=== PATIENT | male | born 1995 | race Asian ===

== ENCOUNTER 2019-03-16 23:03 | Emergency (ER) | payer SELFPAY ==
[~2019-03-16] VITALS: Ht 167.6 cm; Wt 63.0 kg
[2019-03-17 01:27] LABS: CHLORIDE 105 mEq/L (98-107); HEMATOCRIT. 46.2 % (42.0-52.0); HEMOGLOBIN. 15.7 g/dL (14.0-18.0); MEAN CORPUSCULAR VOLUME 88.3 fL (80.0-94.0); MEAN PLATELET VOLUME 8.9 fl (7.4-10.4); PLATELET 195 x1000/uL (130-400); RED BLOOD CELL COUNT 5.24 mill/uL (4.7-6.1); RED CELL DISTRIBUTION WIDTH 12.9 % (11.6-14.6)
[2019-03-17 01:31] LABS: ETHANOL BLOOD < 10 mg/dL
[2019-03-17 01:57] LABS: PLATELET ESTIMATE NORMAL
[2019-03-17] MEDS ORDERED: DIPHENHYDRAMINE 25MG CAPSULE PO ONE (02:15)
[2019-03-17] MEDS ORDERED: OLANZAPINE 10 MG/VIAL IM ONE (04:45)
[2019-03-17 04:51] LABS: *AMPHETAMINES SCREEN URINE NEGATIVE (NEGATIVE); *BARBITURATES SCREEN URINE NEGATIVE (NEGATIVE); *BENZODIAZEPINES SCREEN URINE NEGATIVE (NEGATIVE); *COCAINE SCREEN URINE NEGATIVE (NEGATIVE)
[2019-03-17 04:52] LABS: CANNABINOID URINE SCREEN NEGATIVE (NEGATIVE); METHADONE URINE SCREEN NEGATIVE (NEGATIVE); OPIATES URINE SCREEN NEGATIVE (NEGATIVE); PHENCYCLIDINE URINE SCREEN NEGATIVE (NEGATIVE)
[2019-03-17 05:00] VITALS: BP 112/68
== END 2019-03-17 12:00 | disposition left against medical advice (07) ==
LOC: ER 23:03
DX: R40.4 Transient alteration of awareness (principal)
CPT/HCPCS: 36415; 80053; 80305; 80307; 80320; 80329; 85025; 96372; 99283; J3490; Q0163; G0480